=== PATIENT | male | born 1960 | race Caucasian/White ===

== ENCOUNTER 2023-05-11 03:42 | Day surgery (SDC) | payer BC ==
[2023-05-09 14:58] VITALS: BMI 33.5
[2023-05-11 13:18] VITALS: BP 148/94; PULSE 64; RESP 19; TEMP 97.5
== END 2023-05-11 11:55 | disposition home or self-care (01) ==
LOC: JASU-ENDO 03:42
PROVIDERS: ATTEND Internal Medicine Gastroenterology
PROC: 0DBL8ZX Excision of Transverse Colon, Via Natural or Artificial Opening Endoscopic, Diagnostic (ICD-10-PCS; 2023-05-11)
PROC: 0DBN8ZX Excision of Sigmoid Colon, Via Natural or Artificial Opening Endoscopic, Diagnostic (ICD-10-PCS; principal; 2023-05-11 11:00)
DX: Z12.11 Encounter for screening for malignant neoplasm of colon (principal); D12.3 Benign neoplasm of transverse colon; D12.5 Benign neoplasm of sigmoid colon; K64.8 Other hemorrhoids; K57.30 Diverticulosis of large intestine without perforation or abscess without bleeding; Z86.010 Personal history of colon polyps

== ENCOUNTER 2023-10-10 06:39 | Emergency (ER) | payer BC ==
[2023-10-10 06:43] VITALS: BP 156/83; PULSE 72; RESP 18; TEMP 98.6; BMI 30.5
[2023-10-10] MEDS ORDERED: ACETAMINOPHEN 500 MG TABLET (FP) ONE (08:02)
[2023-10-10] MEDS: ACETAMINOPHEN 500 MG TABLET (FP) PO ONE (08:10)
== END 2023-10-10 11:01 | disposition home or self-care (01) ==
LOC: JER 06:39
DX: M25.572 Pain in left ankle and joints of left foot (principal); M25.472 Effusion, left ankle
CPT/HCPCS: 73610-TC-LT-FY; 73630-TC-LT; 99283-25